=== PATIENT | female | born 1965 | race Caucasian/White ===

== ENCOUNTER → 2016-10-12 | Outpatient (CLI) | payer OTHER | END | disposition home or self-care (01) | LOC: C.LAB 09:15 | PROVIDERS: ATTEND Family Medicine | DX: A09 Infectious gastroenteritis and colitis, unspecified (principal) ==

== ENCOUNTER 2016-11-22 02:45 | Emergency (ER) | payer OTHER ==
[~2016-11-22] VITALS: Ht 162.6 cm; Wt 50.3 kg
[2016-11-22 02:51] VITALS: TEMP 36.7; Ht 162.6 cm; Wt 50.3 kg
[2016-11-22] MEDS ORDERED: DICYCLOMINE HCL 10 MG/ML 2 ML AMP IM ONE (03:45)
[2016-11-22] MEDS ORDERED: SODIUM CHLORIDE 0.9% 1000ML 1,000 ML IV STA (03:45)
[2016-11-22 04:12] LABS: BASO % 0.5 %; BASO ABS # 0.04 K/uL (0-0.2); COMPLETE YES; EOS % 2.8 %; HEMATOCRIT 41.3 % (37-47); IG% 0.1 %; LYMPH % 21.1 %; MEAN CELL VOLUME 90.6 fL (80-100); MEAN CORPUSCULAR HEMOGLOBIN 30.3 pg (25-34); MEAN CORPUSCULAR HGB CONC 33.4 g/dl (32-36); MEAN PLATELET VOLUME 9.9 fL (7.4-10.4); MONO % 11.7 %; NEUT % 63.8 %; PLATELET COUNT 300 K/uL (130-400); RED BLOOD COUNT 4.56 M/uL (4.2-5.4); WHITE BLOOD COUNT 8.52 K/uL (4.8-10.8)
[2016-11-22] MEDS ORDERED: ASPI81TA28 PO (04:16)
[2016-11-22] MEDS ORDERED: PANT40TA PO (04:16)
[2016-11-22 04:31] LABS: ALT/SGPT 28 U/L (12-78); AST/SGOT 21 U/L (15-37); BLOOD UREA NITROGEN 5 mg/dl (7-18); BUN/CREATININE RATIO 9.6 (10-20); CALCIUM 8.8 mg/dl (8.5-10.1); CARBON DIOXIDE 25 mmol/L (21-32); CHLORIDE 108 mmol/L (98-107); CREATININE 0.55 mg/dl (0.60-1.20); GLUCOSE 89 mg/dl (70-99); POTASSIUM 3.8 mmol/L (3.5-5.1); SODIUM 141 mmol/L (136-145)
[2016-11-22 04:34] LABS: ALKALINE PHOSPHATASE 70 U/L (45-117)
--- NOTE | 2016-11-22 05:02 | EMERGENCY ROOM VISIT NOTE ---
History First contact with patient: 02:50 Chief Complaint: GI ASSESSMENT Stated Complaint: GI SYMPTOMS, WEAKNESS Nursing Triage Summary: Pt had an abnormal finding on abdominal CT last week or earlier this week, and is scheduled for a colonoscopy today. Doing bowel prep last night, and had severe diarrhea starting 2030 last night. Emesis x1 at 0100. Developed generalized weakness after the vomiting/diarrhea. RUQ abdominal tenderness. History of Present Illness The patient is a 51 year old female who presents to the Emergency Room with complaints of abdominal cramping after taking bowel prep for her colonoscopy today. Patient states she has a scheduled colonoscopy today for abnormal findings on a CT scan from earlier this month. Patient states she started getting cramping and bloating and got sweaty and threw up a few times but now feels better. She's been moving her bowels. Patient denies any black or blood in her vomit or stool. Pain currently 3 out of 10 to the upper abdomen. Nothing makes it better or worse. It does not radiate. Pain described as cramping. Patient denies chest pain, dyspnea, fever, chills, cough, congestion , back pain, urinary symptoms. Review of Systems See HPI for pertinent positives & negatives. A total of 10 systems reviewed and were otherwise negative. Past Medical/Surgical History GERD , cholecystectomy Social History Smoking Status: Current Every Day Smoker Smokeless Tobacco Use: No Alcohol Use: none Drug Use: none Marital Status: Housing Status: lives with family Current/Historical Medications Scheduled Aspirin (Aspirin Ec), 81 MG PO DAILY Pantoprazole (Protonix), 40 MG PO DAILY Physical Exam Vital Signs Date Time Temp Pulse Resp B/P (MAP) Pulse Ox O2 Delivery O2 Flow Rate FiO2 11/22/16 04:07 Room Air 11/22/16 04:00 71 22 107/71 97 Room Air 11/22/16 03:00 73 11/22/16 02:51 36.7 69 19 120/73 97 Room Air Physical Exam VITALS: Vitals are noted on the nurse's note and reviewed by myself. Vital signs stable. GENERAL: Pleasant female smiling and interactive, in no acute distress, nondiaphoretic, well-developed well-nourished. SKIN: The skin was without rashes, erythema, edema, or bruising. There is no tenting of the skin. Capillary reflex less than 2 seconds. HEAD: Normocephalic atraumatic. EARS: External auditory canals clear, tympanic membranes pearly marks without erythema or effusion bilaterally. EYES: Pupils equal round and reactive to light and accommodation. Conjunctivae without injection, sclerae without icterus. Extraocular movements intact. NOSE: Patent, turbinates without inflammation or discharge. MOUTH: Mucous membranes mildly dry. Pharynx without erythema or exudate. Uvula midline. Airway patent. Tongue does not deviate. NECK: Supple without nuchal rigidity. No lymphadenopathy. No thyromegaly. Cervical spine is nontender. No JVD. HEART: Regular rate and rhythm without murmurs gallops or rubs. LUNGS: Clear to auscultation bilaterally without wheezes, rales or rhonchi. No dullness to percussion. No retractions or accessory muscle use. ABDOMEN: Positive bowel sounds x 4. Normal tympanic percussion. Soft, nontender, without masses or organomegaly. Wolff sign negative. No guarding or rebound tenderness. No CVA tenderness MUSCULOSKELETAL: No muscle atrophy, erythema, or edema noted. NEURO: Patient was alert and oriented to person place and time. Normal sensation to light and sharp touch. No focal neurological deficits. Medical Decision & Procedures Laboratory Results 11/22/16 04:00 Red Blood Count 4.56, Mean Corpuscular Volume 90.6, Mean Corpuscular Hemoglobin 30.3, Mean Corpuscular Hemoglobin Concent 33.4, Mean Platelet Volume 9.9, Neutrophils (%) (Auto) 63.8, Lymphocytes (%) (Auto) 21.1, Monocytes (%) (Auto) 11.7, Eosinophils (%) (Auto) 2.8, Basophils (%) (Auto) 0.5, Neutrophils # (Auto ) 5.43, Lymphocytes # (Auto) 1.80, Monocytes # (Auto) 1.00, Eosinophils # (Auto ) 0.24, Basophils # (Auto) 0.04 11/22/16 04:00 Test 11/22/16 04:00 White Blood Count 8.52 K/uL (4.8-10.8) Red Blood Count 4.56 M/uL (4.2-5.4) Hemoglobin 13.8 g/dL (12.0-16.0) Hematocrit 41.3 % (37-47) Mean Corpuscular Volume 90.6 fL (80-100) Mean Corpuscular Hemoglobin 30.3 pg (25-34) Mean Corpuscular Hemoglobin Concent 33.4 g/dl (32-36) Platelet Count 300 K/uL (130-400) Mean Platelet Volume 9.9 fL (7.4-10.4) Neutrophils (%) (Auto) 63.8 % Lymphocytes (%) (Auto) 21.1 % Monocytes (%) (Auto) 11.7 % Eosinophils (%) (Auto) 2.8 % Basophils (%) (Auto) 0.5 % Neutrophils # (Auto) 5.43 K/uL (1.4-6.5) Lymphocytes # (Auto) 1.80 K/uL (1.2-3.4) Monocytes # (Auto) 1.00 K/uL (0.11-0.59) Eosinophils # (Auto) 0.24 K/uL (0-0.5) Basophils # (Auto) 0.04 K/uL (0-0.2) RDW Standard Deviation 46.7 fL (36.4-46.3) RDW Coefficient of Variation 14.1 % (11.5-14.5) Immature Granulocyte % (Auto) 0.1 % Immature Granulocyte # (Auto) 0.01 K/uL (0.00-0.02) Anion Gap 8.0 mmol/L (3-11) Est Creatinine Clear Calc Drug Dose 95.0 ml/min Estimated GFR () 125.0 Estimated GFR (Non- 107.8 BUN/Creatinine Ratio 9.6 (10-20) Calcium Level 8.8 mg/dl (8.5-10.1) Total Bilirubin 0.5 mg/dl (0.2-1) Direct Bilirubin < 0.1 mg/dl (0-0.2) Aspartate Amino Transf (AST/SGOT) 21 U/L (15-37) Alanine Aminotransferase (ALT/SGPT) 28 U/L (12-78) Alkaline Phosphatase 70 U/L (45-117) Total Protein 6.9 gm/dl (6.4-8.2) Albumin 3.8 gm/dl (3.4-5.0) Lipase 217 U/L (73-393) Medications Administered Medications (Trade) Dose Ordered Sig/Davis Route Start Time Stop Time Status Last Admin Dose Admin Dicyclomine HCl (Bentyl Inj) 20 mg NOW ONCE IM 11/22/16 03:45 11/22/16 03:47 DC 11/22/16 04:03 20 MG Sodium Chloride 1,000 ml @ 999 mls/hr Q1H1M STAT IV 11/22/16 03:45 11/22/16 04:45 DC 11/22/16 04:03 999 MLS/HR ED Course Prior records/ancillary studies reviewed. Triage Nursing notes reviewed. Additional history obtained from The patient's history was concerning for abdominal cramping after taking bowel prep for colonoscopy. Differential diagnosis: Etiologies such as side effect to bowel prep, appendicitis, diverticulitis, PUD , biliary pathology, UTI, pancreatitis, obstruction, mesenteric ischemia, aortic pathology, infections, inflammatory bowel disease, renal colic, as well as others were entertained. Physical examination findings: As above. ER treatment provided: IV fluids, Bentyl On reassessment the patient felt better. Diagnostics interpreted by me: The labs revealed no leukocytosis. No worrisome electrolyte abnormality Imaging studies: Acute abdominal series no free air, obstruction or pneumothorax per my interpretation Exam and history seem consistent with abdominal cramping most likely from the bowel prep. Patient was advised to continue her prep for her colonoscopy today. She did not have acute abdomen on exam. She is well-appearing. She is tolerating fluids. She is advised to follow-up family care in a few days or here in the ER sooner for abdominal pain, fevers, vomiting, worsening signs or symptoms or as needed.By the evaluation outlined above emergent etiologies such as appendicitis, diverticulitis, PUD, biliary pathology, UTI, pancreatitis, obstruction, mesenteric ischemia, aortic pathology, infections, inflammatory bowel disease, renal colic, as well as others were deemed relatively unlikely. The pt informed about the findings as listed above. All questions were answered and pleased with the treatment. Return instructions were outlined and the patient was discharged in stable condition. Outpatient prescription management: [facility] Referral: The patient was referred back to their primary care physician for follow-up in 2 to 3 days for a recheck of the current condition. Medical Decision as above Medication Reconcilliation Current Medication List: was personally reviewed by me Blood Pressure Screening Patient's blood pressure: Normal blood pressure Impression Primary Impression: Abdominal cramping Departure Information Dispostion Home / Self-Care Condition GOOD Referrals Jose Daniel Retana M.D. (PCP) Patient Instructions My [facility] Additional Instructions Continue your bowel prep regimen. Zofran 4 m tablet every 6 hours as needed for nausea or vomiting. Keep your appointment as scheduled for a colonoscopy today. Follow up with family care in 2-3 days. Return to ER sooner for abdominal pain, fevers, vomiting, black or bloody stool , worsening signs or symptoms or as needed.
[2016-11-22 05:12] VITALS: BP 117/71; PULSE 74; O2SAT 99
[2016-11-22] MEDS ORDERED: ONDANSETRON HOME PACK 4MG OD TAB PO ONE (05:15)
--- NOTE | 2016-11-22 07:23 | DIAGNOSTIC IMAGING REPORT ---
PA CHEST RADIOGRAPH AND UPRIGHT AND SUPINE AP RADIOGRAPHS OF THE ABDOMEN CLINICAL HISTORY: Abdominal pain. COMPARISON STUDY: No previous studies for comparison. FINDINGS: Lung volumes are normal. No consolidation is identified. Pulmonary vascularity is normal. Cardiomediastinal silhouette is normal. There is no free air. The bowel gas pattern is normal. There are cholecystectomy clips. Pelvic calcifications likely reflect phleboliths. IMPRESSION: 1. No free air or evidence of bowel obstruction. 2. No acute cardiopulmonary findings. Electronically signed by: Leon Yang M.D. 11/22/2016 7:21 AM Dictated Date/Time: 11/22/2016 7:20 AM
== END 2016-11-22 05:13 | disposition home or self-care (01) ==
LOC: C.EDB 02:45 → EDBD 02:45 → C.EDB 05:13
DX: R10.9 Unspecified abdominal pain (principal); K21.9 Gastro-esophageal reflux disease without esophagitis; Z90.49 Acquired absence of other specified parts of digestive tract; Z79.82 Long term (current) use of aspirin; F17.200 Nicotine dependence, unspecified, uncomplicated

== ENCOUNTER 2017-03-18 18:30 | Observation (INO) | payer OTHER ==
[~2017-03-18] VITALS: Ht 162.6 cm; Wt 50.3 kg
[~2017-03-18 18:30] MED LIST: ASPI81TA28 PO; PANT40TA PO
[2017-03-18] MEDS ORDERED: ASPIRIN 81 MG CHEW PO STA (18:49)
[2017-03-18] MEDS ORDERED: ALBUT/IPRATROP 3MG/0.5MG NEB 3 ML VIAL INH STA (18:49)
--- NOTE | 2017-03-18 18:58 | EMERGENCY ROOM VISIT NOTE ---
History Report prepared by Lisa: Omar Leung Under the Supervision of: Dr. Mal Dao M.D. First contact with patient: 18:37 Chief Complaint: CHEST PAIN Stated Complaint: CHEST PAIN Nursing Triage Summary: Pt states she has a monitor on. Pt c/o left chest pain at 1725, Nitro didn't burn under her tongue. Didn't help with pain. Took two baby aspirin. Diaphoretic with CP. Denies SOB. States some neck pain. Pt state patient has monitor because she gets dizzy and lightheaded. History of Present Illness The patient is a 51 year old female who presents to the Emergency Room with complaints of constant left-sided chest pain that began 1 hour and 15 minutes prior to arrival to the emergency department. The patient notes that she sat up from her chair when the pain began. She states that the pain does not radiate and is localized to the left side of her chest. The patient reports that the pain was accompanied by diaphoresis and notes that the pain is also worsened upon inhalation. The patient's reports that the patient had a cardiac catheterization one year ago but did not have a stent put in. He also notes that the patient has a 50% blockage in one artery. The patient reports that this is the first time she had experienced pain like this. She notes that she took 2 baby aspirin and 1 nitroglycerine REFERRAL SPECIALIST in the ED but did not feel that the nitroglycerine alleviated her symptoms. The patient reports that she is a current smoker and does not use any inhalers. Source of History: patient Onset: 1 hour and 15 minutes ago Position: chest (left) Quality: other (Pain ) Timing: constant Modifying Factors (Worsening): breathing Associated Symptoms: + diaphoresis Review of Systems See HPI for pertinent positives & negatives. A total of 10 systems reviewed and were otherwise negative. Past Medical & Surgical Medical Problems: (1) Kimble esophagus (2) Chest pain (3) History of heart disease (4) IBS (irritable bowel syndrome) Surgical Problems: (1) H/O cervical spine surgery (2) History of cholecystectomy (3) S/P appy (4) S/P partial hysterectomy Social History Problems: (1) Smoker Social History Smoking Status: Current Every Day Smoker Alcohol Use: none Drug Use: none Marital Status: Housing Status: lives with family Current/Historical Medications Scheduled Aspirin (Aspirin Ec), 81 MG PO DAILY Atorvastatin (Lipitor), 20 MG PO DAILY Linaclotide (Linzess), 1 CAP PO DAILY Nitroglycerin (Nitrostat), 0.4 MG UT PRN Pantoprazole (Protonix), 40 MG PO DAILY Probiotic Product (Probiotic), 1 CAP PO DAILY Allergies Coded Allergies: Meperidine (Unverified Adverse Reaction, Intermediate, NAUSEA, 03/18/17) Physical Exam Vital Signs Date Time Temp Pulse Resp B/P (MAP) Pulse Ox O2 Delivery O2 Flow Rate FiO2 03/18/17 19:44 95 18 126/73 94 Room Air 03/18/17 19:11 90 18 123/88 99 03/18/17 19:11 85 03/18/17 19:10 95 Room Air 03/18/17 19:10 Room Air 03/18/17 19:02 86 18 130/81 95 Room Air 03/18/17 18:36 97 Room Air 03/18/17 18:32 36.8 112 20 161/90 97 Room Air Physical Exam GENERAL: Patient is a healthy-appearing well-nourished female. HEAD: Normocephalic atraumatic EYES: Ocular movements intact pupils equal and react to light OROPHARYNX mucous membranes are moist no exudates present no erythema or edema present NECK: Supple no nuchal rigidity CHEST: Good equal expansion. Point tender to the 6th rib on the right. LUNGS: Bilateral wheezing. CARDIAC: Normal S1 and S2 ABDOMEN: Soft nontender no guarding BACK: No CVA tenderness EXTREMITIES: No pain upon palpation normal muscle strength in all groups no clubbing cyanosis or edema NEURO: Patient is following commands and answering questions appropriately. Alert and oriented x3 Cranial Nerves 2-12 grossly intact Medical Decision & Procedures ER Provider Diagnostic Interpretation: Radiology results as stated below per my review and radiologist interpretation: (CHEST FOR PE) ANGIO WITH CT DOSE: 172.90 mGy.cm HISTORY: Chest pain dyspnea TECHNIQUE: Multiaxial CT images of the chest were performed following the intravenous administration of contrast to evaluate the pulmonary arteries. Maximal intensity projection images were also obtained. A dose lowering technique was utilized adhering to the principles of ALARA. COMPARISON STUDY: None. FINDINGS: There is a normal caliber thoracic aorta with no evidence for dissection. There is no evidence for pulmonary embolus. No pleural effusions. No pneumothorax. The liver and spleen are unremarkable. No mediastinal or hilar lymphadenopathy. The central airways are patent. The lungs are clear. IMPRESSION: No evidence for pulmonary embolus. The lungs are clear. The above report was generated using voice recognition software. It may contain grammatical, syntax or spelling errors. Electronically signed by: Merritt Contreras M.D. 03/18/2017 7:41 PM Dictated Date/Time: 03/18/2017 7:40 PM Laboratory Results 03/18/17 18:45 Red Blood Count 4.52, Mean Corpuscular Volume 91.8, Mean Corpuscular Hemoglobin 31.0, Mean Corpuscular Hemoglobin Concent 33.7, Mean Platelet Volume 10.2, Neutrophils (%) (Auto) 59.8, Lymphocytes (%) (Auto) 28.9, Monocytes (%) (Auto) 8.4, Eosinophils (%) (Auto) 2.2, Basophils (%) (Auto) 0.5, Neutrophils # (Auto) 5.12, Lymphocytes # (Auto) 2.48, Monocytes # (Auto) 0.72, Eosinophils # (Auto) 0.19, Basophils # (Auto) 0.04 03/18/17 18:45 Test 03/18/17 18:45 White Blood Count 8.57 K/uL (4.8-10.8) Red Blood Count 4.52 M/uL (4.2-5.4) Hemoglobin 14.0 g/dL (12.0-16.0) Hematocrit 41.5 % (37-47) Mean Corpuscular Volume 91.8 fL (80-100) Mean Corpuscular Hemoglobin 31.0 pg (25-34) Mean Corpuscular Hemoglobin Concent 33.7 g/dl (32-36) Platelet Count 295 K/uL (130-400) Mean Platelet Volume 10.2 fL (7.4-10.4) Neutrophils (%) (Auto) 59.8 % Lymphocytes (%) (Auto) 28.9 % Monocytes (%) (Auto) 8.4 % Eosinophils (%) (Auto) 2.2 % Basophils (%) (Auto) 0.5 % Neutrophils # (Auto) 5.12 K/uL (1.4-6.5) Lymphocytes # (Auto) 2.48 K/uL (1.2-3.4) Monocytes # (Auto) 0.72 K/uL (0.11-0.59) Eosinophils # (Auto) 0.19 K/uL (0-0.5) Basophils # (Auto) 0.04 K/uL (0-0.2) RDW Standard Deviation 47.2 fL (36.4-46.3) RDW Coefficient of Variation 14.1 % (11.5-14.5) Immature Granulocyte % (Auto) 0.2 % Immature Granulocyte # (Auto) 0.02 K/uL (0.00-0.02) Prothrombin Time 10.0 SECONDS (9.0-12.0) Prothromb Time International Ratio 1.0 (0.9-1.1) Anion Gap 9.0 mmol/L (3-11) Est Creatinine Clear Calc Drug Dose 65.8 ml/min Estimated GFR () 99.8 Estimated GFR (Non- 86.1 BUN/Creatinine Ratio 9.3 (10-20) Calcium Level 9.1 mg/dl (8.5-10.1) Total Bilirubin 0.3 mg/dl (0.2-1) Direct Bilirubin < 0.1 mg/dl (0-0.2) Aspartate Amino Transf (AST/SGOT) 14 U/L (15-37) Alanine Aminotransferase (ALT/SGPT) 20 U/L (12-78) Alkaline Phosphatase 59 U/L (45-117) Total Creatine Kinase 41 U/L (26-192) Creatine Kinase MB < 0.5 ng/ml (0.5-3.6) Creatine Kinase MB Ratio (0-3.0) Total Protein 7.5 gm/dl (6.4-8.2) Albumin 4.0 gm/dl (3.4-5.0) Lipase 213 U/L (73-393) Labs reviewed by ED physician. Medications Administered Medications (Trade) Dose Ordered Sig/Davis Route Start Time Stop Time Status Last Admin Dose Admin Albuterol/ Ipratropium (Duoneb) 3 ml NOW STAT INH 03/18/17 18:49 03/18/17 18:53 DC 03/18/17 19:04 3 ML Aspirin (Aspirin Chew) 324 mg NOW STAT PO 03/18/17 18:49 03/18/17 18:53 DC 03/18/17 19:03 324 MG Nitroglycerin (Nitrostat Tab) 0.4 mg Q5M PRN SL 03/18/17 19:00 03/18/17 21:31 DC 03/18/17 19:07 0.4 MG ECG Indication: chest pain Rate (beats per minute): 96 Rhythm: normal sinus Findings: no acute ischemic change, no ectopy, other (Normal Sinus Rhythym, normal axis, rate 96, no st elevations or depressions. ) Change: Repeat EKG: Normal sinus rhythm, rate 89, no ischemia, no ectopy, normal axis, no st elevations or depression. Repeat EKG shows no change from previous EKG. Patient's electrocardiogram per my interpretation. ED Course 1837: Past medical records reviewed. The patient was evaluated in room A11A. A complete history and physical examination was performed. 1848: Ordered aspirin 324 mg PO, and Albuterol/Ipratropium 3ml INH 1899: Ordered nitroglycerine 0.4mg SL 1922: Ordered Ativan 0.5 mg IV. 2029: I discussed the patient's case with Dr. Watson Baekr. She will evaluate the patient for further treatment and care. Medical Decision Differential diagnosis: Etiologies such as cardiac ischemia, aortic dissection, pulmonary embolism, pneumonia, pneumothorax, musculoskeletal, infections, pericarditis, myocarditis , esophageal rupture, gastrointestinal, as well as others were entertained. This is a 51-year-old female who presents emergency department complaining of chest pain. The patient was given nitro paste in the emergency department with complete resolution of her pain. She was also given aspirin. The patient is wheezing throughout all lung evans was also given a DuoNeb breathing treatment. Based on the fact that the patient's pain was relieved by nitroglycerin I did discuss the case with the hospitalist service who agreed to admit the patient for observation. Patient and were in agreement with the treatment plan. Medication Reconcilliation Current Medication List: was personally reviewed by me Blood Pressure Screening Patient's blood pressure: Normal blood pressure Consults Time Called: 2024 Consulting Physician: Dr. Watson Baker Returned Call: 2029 I discussed the patient's case with Dr. Watson Baker. She will evaluate the patient for further treatment. Impression Primary Impression: Precordial chest pain Scribe Attestation The scribe's documentation has been prepared under my direction and personally reviewed by me in its entirety. I confirm that the note above accurately reflects all work, treatment, procedures, and medical decision making performed by me. Departure Information Dispostion Being Evaluated By Hospitalist Referrals Vijay Jolley MD (PCP) Patient Instructions My [facility]
[2017-03-18] MEDS ORDERED: NITROGLYCERIN 0.4 MG SL PER TAB CHARGE SL PRN ×2 (19:00→21:30)
[2017-03-18 19:01] LABS: BASO % 0.5 %; BASO ABS # 0.04 K/uL (0-0.2); EOS % 2.2 %; EOS ABS # 0.19 K/uL (0-0.5); HEMATOCRIT 41.5 % (37-47); IG# 0.02 K/uL (0.00-0.02); LYMPH % 28.9 %; LYMPH ABS # 2.48 K/uL (1.2-3.4); MEAN CELL VOLUME 91.8 fL (80-100); MEAN CORPUSCULAR HGB CONC 33.7 g/dl (32-36); MEAN PLATELET VOLUME 10.2 fL (7.4-10.4); MONO % 8.4 %; MONO ABS # 0.72 K/uL (0.11-0.59); NEUT % 59.8 %; NEUT ABS # 5.12 K/uL (1.4-6.5); PLATELET COUNT 295 K/uL (130-400); RED CELL DISTRIBUTION WIDTH CV 14.1 % (11.5-14.5); RED CELL DISTRIBUTION WIDTH SD 47.2 fL (36.4-46.3); WHITE BLOOD COUNT 8.57 K/uL (4.8-10.8)
[2017-03-18] MEDS ORDERED: OPTIRAY 320 IV PRN (19:15)
[2017-03-18 19:22] LABS: ALT/SGPT 20 U/L (12-78); BLOOD UREA NITROGEN 7 mg/dl (7-18); CALCIUM 9.1 mg/dl (8.5-10.1); CARBON DIOXIDE 28 mmol/L (21-32); CREATININE 0.79 mg/dl (0.60-1.20); GLUCOSE 119 mg/dl (70-99); LIPASE 213 U/L (73-393); POTASSIUM 3.5 mmol/L (3.5-5.1); SODIUM 142 mmol/L (136-145)
[2017-03-18] MEDS ORDERED: LORAZEPAM 2 MG/ML 1 ML VIAL IV STA (19:23)
[2017-03-18 19:26] LABS: ALKALINE PHOSPHATASE 59 U/L (45-117); AST/SGOT 14 U/L (15-37); CKMB < 0.5 ng/ml (0.5-3.6); TOTAL PROTEIN 7.5 gm/dl (6.4-8.2)
--- NOTE | 2017-03-18 19:42 | DIAGNOSTIC IMAGING REPORT ---
(CHEST FOR PE) ANGIO WITH CT DOSE: 172.90 mGy.cm HISTORY: Chest pain dyspnea TECHNIQUE: Multiaxial CT images of the chest were performed following the intravenous administration of contrast to evaluate the pulmonary arteries. Maximal intensity projection images were also obtained. A dose lowering technique was utilized adhering to the principles of ALARA. COMPARISON STUDY: None. FINDINGS: There is a normal caliber thoracic aorta with no evidence for dissection. There is no evidence for pulmonary embolus. No pleural effusions. No pneumothorax. The liver and spleen are unremarkable. No mediastinal or hilar lymphadenopathy. The central airways are patent. The lungs are clear. IMPRESSION: No evidence for pulmonary embolus. The lungs are clear. The above report was generated using voice recognition software. It may contain grammatical, syntax or spelling errors. Electronically signed by: Merritt Contreras M.D. 03/18/2017 7:41 PM Dictated Date/Time: 03/18/2017 7:40 PM
[2017-03-18] MEDS ORDERED: LINA1CAP PO (20:01)
[2017-03-18] MEDS ORDERED: MISCCAP80 PO (20:01)
[2017-03-18] MEDS ORDERED: NTRGSL/4 UT (20:01)
[2017-03-18] MEDS ORDERED: IV FLUIDS COMPLETED PRN (20:45)
[2017-03-18 21:24] VITALS: BP 129/79; PULSE 81; TEMP 36.8; O2SAT 98
[2017-03-18] MEDS ORDERED: LPT20 PO (21:26)
[2017-03-18] MEDS ORDERED: ACETAMINOPHEN 325 MG TAB PO PRN (21:30)
[2017-03-18] MEDS ORDERED: POLYETHYLENE (MIRALAX) 17 GM PACK PO PRN (21:30)
[2017-03-18] MEDS ORDERED: MoRPHine SULFATE 2 MG/ML CARP IV PRN (21:30)
[2017-03-18] MEDS ORDERED: ONDANSETRON INJ 2 MG/ML 2 ML VIAL IV PRN (21:30)
--- NOTE | 2017-03-18 21:38 | History and Physical ---
History & Physical Date & Time of Service: Mar 18, 2017 at 21:27 Chief Complaint: Chest Pain Primary Care Physician: Vijay Jolley MD History of Present Illness Source: patient, spouse, clinic records, hospital records 51 yo F with h/o nonobstructive CAD presents to the ER with chest pain that began at rest after eating flavored chips and persisted. In the ER, her pain was relieved with nitro and had persisted for a couple of hours. She reports the pain in her L anterior chest without radiation and was accompanied by sweaty underarms. She denies any SOB or pain with inhalation but did have a CTA which was negative for PE. She reports taking her own nitro at home but states she thinks it didn't work because it is . ASA was given. She was recently seen by Dr. Melvin for persistent syncopal episodes and is currently on a Ziopatch. She denies any recent syncope. She also states that she is a smoker and has "debris" in her lung for which she is seeing a piper helper. She reports no SOB but has had a productive cough of brownish sputum and has some wheezing on exam. She is not in respiratory distress and is not requiring oxygen supplementation. She is currently chest pain-free after the nitro in the ER. Risk factors include HLP, active smoking and strong family history of early CAD including her mom with UT @63 yo, brother with UT @ 40 yo and sister with UT @ 50 yo. Past Medical/Surgical History Medical Problems: (1) Kimble esophagus Status: Chronic (2) History of heart disease Status: Chronic (3) IBS (irritable bowel syndrome) Status: Chronic Surgical Problems: (1) H/O cervical spine surgery Status: Chronic (2) History of cholecystectomy Status: Chronic (3) S/P appy Status: Chronic (4) S/P partial hysterectomy Permanent Comment: 2007 Status: Chronic Social History Problems: (1) Smoker Status: Chronic Family History FH: heart attack MOTHER (63, ) BROTHER (40, ) SISTER (53) Social History Smoking Status: Current Every Day Smoker Smokeless Tobacco Use: No Alcohol Use: none Marital Status: Housing status: lives with significant other Immunizations History of Influenza Vaccine: Yes Influenza Vaccine Date: Nov 09, 2016 History of Tetanus Vaccine?: Yes Tetanus Immunization Date: Jan 23, 2017 History of Pneumococcal: Yes Pneumococcal Date: Nov 09, 2016 History of Hepatitis B Vaccine: Unknown Multi-Drug Resistant Organisms History of MDRO: No Allergies Coded Allergies: Meperidine (Unverified Adverse Reaction, Intermediate, NAUSEA, 03/18/17) Home Medications Scheduled Aspirin (Aspirin Ec), 81 MG PO DAILY Atorvastatin (Lipitor), 20 MG PO DAILY Linaclotide (Linzess), 1 CAP PO DAILY Nitroglycerin (Nitrostat), 0.4 MG UT PRN Pantoprazole (Protonix), 40 MG PO DAILY Probiotic Product (Probiotic), 1 CAP PO DAILY Review of Systems At least ten systems were reviewed and negative except as indicated in HPI. Physical Exam Vital Signs Date Time Temp Pulse Resp B/P (MAP) Pulse Ox O2 Delivery O2 Flow Rate FiO2 03/18/17 21:01 36.8 79 18 128/86 95 03/18/17 19:44 95 18 126/73 94 Room Air 03/18/17 19:11 90 18 123/88 99 03/18/17 19:11 85 03/18/17 19:10 95 Room Air 03/18/17 19:10 Room Air 03/18/17 19:02 86 18 130/81 95 Room Air 03/18/17 18:36 97 Room Air 03/18/17 18:32 36.8 112 20 161/90 97 Room Air General Appearance: WD/WN, no apparent distress Head: normocephalic, atraumatic Eyes: normal inspection, PERRL ENT: hearing grossly normal, pharynx normal Neck: supple, no adenopathy, trachea midline Respiratory/Chest: chest non-tender, normal breath sounds, no respiratory distress, no accessory muscle use, + wheezing Cardiovascular: regular rate, rhythm, no edema, no gallop, no JVD, no murmur, normal peripheral pulses Abdomen/GI: normal bowel sounds, non tender, soft, no organomegaly Back: normal inspection Extremities/Musculoskelatal: normal inspection 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, no motor/sensory deficits, alert, normal mood/affect, oriented x 3 Skin: normal color, warm/dry, + pertinent finding (tattoes and mild eczematous patches.) Diagnostics Laboratory Results 03/18/17 18:45 Red Blood Count 4.52, Mean Corpuscular Volume 91.8, Mean Corpuscular Hemoglobin 31.0, Mean Corpuscular Hemoglobin Concent 33.7, Mean Platelet Volume 10.2, Neutrophils (%) (Auto) 59.8, Lymphocytes (%) (Auto) 28.9, Monocytes (%) (Auto) 8.4, Eosinophils (%) (Auto) 2.2, Basophils (%) (Auto) 0.5, Neutrophils # (Auto) 5.12, Lymphocytes # (Auto) 2.48, Monocytes # (Auto) 0.72, Eosinophils # (Auto) 0.19, Basophils # (Auto) 0.04 03/18/17 18:45 Test 03/18/17 18:45 White Blood Count 8.57 K/uL (4.8-10.8) Red Blood Count 4.52 M/uL (4.2-5.4) Hemoglobin 14.0 g/dL (12.0-16.0) Hematocrit 41.5 % (37-47) Mean Corpuscular Volume 91.8 fL (80-100) Mean Corpuscular Hemoglobin 31.0 pg (25-34) Mean Corpuscular Hemoglobin Concent 33.7 g/dl (32-36) Platelet Count 295 K/uL (130-400) Mean Platelet Volume 10.2 fL (7.4-10.4) Neutrophils (%) (Auto) 59.8 % Lymphocytes (%) (Auto) 28.9 % Monocytes (%) (Auto) 8.4 % Eosinophils (%) (Auto) 2.2 % Basophils (%) (Auto) 0.5 % Neutrophils # (Auto) 5.12 K/uL (1.4-6.5) Lymphocytes # (Auto) 2.48 K/uL (1.2-3.4) Monocytes # (Auto) 0.72 K/uL (0.11-0.59) Eosinophils # (Auto) 0.19 K/uL (0-0.5) Basophils # (Auto) 0.04 K/uL (0-0.2) RDW Standard Deviation 47.2 fL (36.4-46.3) RDW Coefficient of Variation 14.1 % (11.5-14.5) Immature Granulocyte % (Auto) 0.2 % Immature Granulocyte # (Auto) 0.02 K/uL (0.00-0.02) Anion Gap 9.0 mmol/L (3-11) Est Creatinine Clear Calc Drug Dose 65.8 ml/min Estimated GFR () 99.8 Estimated GFR (Non- 86.1 BUN/Creatinine Ratio 9.3 (10-20) Calcium Level 9.1 mg/dl (8.5-10.1) Total Bilirubin 0.3 mg/dl (0.2-1) Direct Bilirubin < 0.1 mg/dl (0-0.2) Aspartate Amino Transf (AST/SGOT) 14 U/L (15-37) Alanine Aminotransferase (ALT/SGPT) 20 U/L (12-78) Alkaline Phosphatase 59 U/L (45-117) Total Creatine Kinase 41 U/L (26-192) Creatine Kinase MB < 0.5 ng/ml (0.5-3.6) Creatine Kinase MB Ratio (0-3.0) Troponin I < 0.015 ng/ml (0-0.045) Total Protein 7.5 gm/dl (6.4-8.2) Albumin 4.0 gm/dl (3.4-5.0) Lipase 213 U/L (73-393) Results Past 24 Hours Test 03/18/17 18:45 03/18/17 21:18 Range/Units White Blood Count 8.57 4.8-10.8 K/uL Red Blood Count 4.52 4.2-5.4 M/uL Hemoglobin 14.0 12.0-16.0 g/dL Hematocrit 41.5 37-47 % Mean Corpuscular Volume 91.8 80-100 fL Mean Corpuscular Hemoglobin 31.0 25-34 pg Mean Corpuscular Hemoglobin Concent 33.7 32-36 g/dl Platelet Count 295 130-400 K/uL Mean Platelet Volume 10.2 7.4-10.4 fL Neutrophils (%) (Auto) 59.8 % Lymphocytes (%) (Auto) 28.9 % Monocytes (%) (Auto) 8.4 % Eosinophils (%) (Auto) 2.2 % Basophils (%) (Auto) 0.5 % Neutrophils # (Auto) 5.12 1.4-6.5 K/uL Lymphocytes # (Auto) 2.48 1.2-3.4 K/uL Monocytes # (Auto) 0.72 0.11-0.59 K/uL Eosinophils # (Auto) 0.19 0-0.5 K/uL Basophils # (Auto) 0.04 0-0.2 K/uL RDW Standard Deviation 47.2 36.4-46.3 fL RDW Coefficient of Variation 14.1 11.5-14.5 % Immature Granulocyte % (Auto) 0.2 % Immature Granulocyte # (Auto) 0.02 0.00-0.02 K/uL Sodium Level 142 136-145 mmol/L Potassium Level 3.5 3.5-5.1 mmol/L Chloride Level 105 98-107 mmol/L Carbon Dioxide Level 28 21-32 mmol/L Anion Gap 9.0 3-11 mmol/L Blood Urea Nitrogen 7 7-18 mg/dl Creatinine 0.79 0.60-1.20 mg/dl Est Creatinine Clear Calc Drug Dose 65.8 ml/min Estimated GFR () 99.8 Estimated GFR (Non- 86.1 BUN/Creatinine Ratio 9.3 10-20 Random Glucose 119 70-99 mg/dl Calcium Level 9.1 8.5-10.1 mg/dl Total Bilirubin 0.3 0.2-1 mg/dl Direct Bilirubin < 0.1 0-0.2 mg/dl Aspartate Amino Transf (AST/SGOT) 14 15-37 U/L Alanine Aminotransferase (ALT/SGPT) 20 12-78 U/L Alkaline Phosphatase 59 45-117 U/L Total Creatine Kinase 41 26-192 U/L Creatine Kinase MB < 0.5 0.5-3.6 ng/ml Creatine Kinase MB Ratio 0-3.0 Troponin I < 0.015 0-0.045 ng/ml Total Protein 7.5 6.4-8.2 gm/dl Albumin 4.0 3.4-5.0 gm/dl Lipase 213 73-393 U/L Diagnostic Radiology (CHEST FOR PE) ANGIO WITH CT DOSE: 172.90 mGy.cm HISTORY: Chest pain dyspnea TECHNIQUE: Multiaxial CT images of the chest were performed following the intravenous administration of contrast to evaluate the pulmonary arteries. Maximal intensity projection images were also obtained. A dose lowering technique was utilized adhering to the principles of ALARA. COMPARISON STUDY: None. FINDINGS: There is a normal caliber thoracic aorta with no evidence for dissection. There is no evidence for pulmonary embolus. No pleural effusions. No pneumothorax. The liver and spleen are unremarkable. No mediastinal or hilar lymphadenopathy. The central airways are patent. The lungs are clear. IMPRESSION: No evidence for pulmonary embolus. The lungs are clear Normal EKG Impression Assessment and Plan 51 yo with nonobstructive CAD and multiple risk factors for CAD including active tobacco use, HLP and a significant family history presents with several hours of chest pain at rest. 1. Chest pain-rule out ACS overnight. Currently chest pain-free with nitro in the ER, Received ASA and is on statin. Trend trop overnight and Cards consult in am to determine the need for possible stress test. 2. Smoking-encouraged to quit, explained options available to her. She is considering lozenges that we don't have available here. 3. Wheezing-does not have a COPD exacerbation but will give some scheduled duonebs. She has had a cough that is productive but minor. Will flu pcr her and order sputum culture as well. No steroids at this time without any work of breathing. DVT proph-Lovenox Full Code Dispo-tele observation overnight. Leyda Chaudhari DO [facility]ist Level of Care Telemetry Resuscitation Status FULL RESUSCITATION VTE Prophylaxis VTE Risk Assessment Done? Y/N: Yes Risk Level: Moderate Given or contraindicated: Enoxaparin (Lovenox)SQ
[2017-03-18 22:18] VITALS: BP 129/79; PULSE 81; TEMP 36.8; O2SAT 98; Ht 162.6 cm; Wt 50.3 kg
[2017-03-18 23:08] LABS: INFLUENZA A PCR Neg for Influ A (NEG); INFLUENZA B PCR Neg for Influ B (NEG)
[2017-03-18 23:30] VITALS: O2SAT 98
[2017-03-18 23:53] VITALS: BP 126/76; PULSE 71; TEMP 36.6; O2SAT 98
[2017-03-19] MEDS ORDERED: NURSING VERBAL MED ORDER ONE ×5 (00:15→09:15)
[2017-03-19] MEDS ORDERED: ONDANSETRON INJ 2 MG/ML 2 ML VIAL IV PRN (00:45)
[2017-03-19 03:40] VITALS: BP 122/76; PULSE 66; TEMP 36.6; O2SAT 97
[2017-03-19 04:45] VITALS: O2SAT 97
[2017-03-19 07:39] VITALS: BP 107/69; PULSE 69; TEMP 36.5; O2SAT 98
[2017-03-19 07:42] VITALS: PULSE 67; O2SAT 97
[2017-03-19] MEDS ORDERED: ALBUT/IPRATROP 3MG/0.5MG NEB 3 ML VIAL INH SCH (08:00)
[2017-03-19] MEDS ORDERED: ASPIRIN 81 MG ECTAB PO SCH (09:00)
[2017-03-19] MEDS ORDERED: ATORVASTATIN 20 MG TAB PO SCH ×2 (09:00→21:00)
[2017-03-19] MEDS ORDERED: ENOXAPARIN 40 MG/0.4 ML SYR SC SCH (09:00)
[2017-03-19] MEDS ORDERED: PANTOprazole SOD 40 MG TAB PO SCH (09:00)
[2017-03-19] MEDS: LINZESS~ORDER AWAITING ACTION SCH ×2 (09:01)
--- NOTE | 2017-03-19 10:33 | Cardiology Consultation ---
Cardiology Consultation Date of Service Mar 19, 2017. (Mali Flores, FREDERICK) Cardiology Consultation Requesting Physician: Dr. Chaudhari Attending Print Shop Stenographer: Dr. Ruiz HPI: Patient is a 51-year-old female who is known to Dr. Melvin, recently evaluated as a new patient for first time, who carries a PMH significant for hyperlipidemia, family history of premature coronary artery disease, chronic tobacco abuse with underlying COPD. Patient was previously evaluated at [facility] for ongoing chest pain with nuclear stress testing which was negative for inducible ischemia. Due to risk factors, she ultimately underwent cardiac cath on 04/05/2016 which demonstrated mild narrowing of the left circumflex 50-60 % with no other obstructive disease noted and normal LV function. She also reported at her office visit recently several presyncope/syncopal episodes over the last year. She is currently wearing a 2 week Zio monitor to be taken off tomorrow. No recent syncope or near syncope. No dizziness. Patient was in normal state of health yesterday. After eating a large dinner of lasagna and then spicy potato chips, she developed left sided chest pain, described as a sharp/stabbing pain, tender to palpation. No radiation. No associated symptoms of SOB, diaphoresis, nausea Symptoms lasted about 1 hour. She took ASA and nitro at home without relief. She came to ER and received 1 SL nitro with relief within several minutes. EKG was non ischemic. Cardiac enzymes unremarkable x3. She also notes ongoing productive cough. Follows with hotbed operator for COPD and chronic tobacco abuse. She received neb treatment in ER as well which aided in her symptoms. She reports taking Protonix 20 mg in the AM, rather than normal 40 mg. She has a history of Kimble's esophagus At time of consult, patient feeling well. Denies recurrent chest pain with ambulation in the hallways. No SOB. Chronic cough unchanged. No dizziness, syncope or near syncope. No fever or chills. No palpitations. Patient anxious for discharge as is having PET scan today with recent CA diagnosis. Review of Systems: See HPI for pertinent positives. All other 10 point review of systems is negative. Medical Problems: (1) Kimble esophagus (2) Chest pain (3) History of heart disease (4) IBS (irritable bowel syndrome) 5. Non obstructive CAD 6. Syncope, unknown etiology PAST SURGICAL HISTORY: COLONOSCOPY, DIAGNOSTIC (RECTUM) 11/22/2016 hyperplastic polyp, diverticulosis, repeat 3 yrs NECK SPINE FUSION (CERV, BELOW C2) 1998 PARTIAL HYSTERECTOMY 2008 REMOVAL OF APPENDIX 1971 REMOVE GALLBLADDER 04/2016 FAMILY HISTORY: Positive for heart disease in multiple members, including a brother who abruptly at age 40. Mother with history of heart disease. Sister with history of coronary disease. SOCIAL HISTORY: Patient resides in [place]. She previously worked as a warehouse record clerk. She is a 1/2 [id number] smoker of 35+ pack-year history of tobacco use. She uses no alcohol or significant [id number] medications. ALLERGIES: Review of patient's allergies indicates: Allergen Reactions Adhesive Tape Rash Demerol Hcl [Meperidine] Nausea/vomiting MEDICATIONS: Reported Home Medications Medications Dose Route/Sig Max Daily Dose Days Date Category Lipitor (Atorvastatin Calcium) 20 Mg Tab 20 Mg PO DAILY 03/18/17 Reported Probiotic (Probiotic Product) 1 Cap Cap 1 Cap PO DAILY 03/18/17 Reported Linzess (Linaclotide) 145 Mcg Cap 1 Cap PO DAILY 03/18/17 Reported Nitrostat (Nitroglycerin) 0.4 Mg Tab 0.4 Mg UT PRN 03/18/17 Reported Aspirin Ec (Aspirin) 81 Mg Tab 81 Mg PO DAILY 11/22/16 Reported Protonix (Pantoprazole Sodium) 40 Mg Tab 40 Mg PO DAILY 11/22/16 Reported PHYSICAL EXAMINATION: Last 8 Hrs Date Time Temp Pulse Resp B/P (MAP) Pulse Ox O2 Delivery O2 Flow Rate FiO2 03/19/17 08:00 Room Air 03/19/17 07:42 67 18 97 Room Air 03/19/17 07:39 36.5 69 18 107/69 (82) 98 Room Air 03/19/17 04:45 97 Room Air 03/19/17 03:40 36.6 66 14 122/76 (91) 97 Room Air GEN: A+Ox3. NAD. HEENT exam is normocephalic and atraumatic. Nares without discharge. Throat was clear. Neck was supple without thyromegaly, lymphadenopathy. There are no carotid bruits.Chest: Mild tenderness to left side chest wall with palpation. Lungs: Scattered rhonchi. No rales. Cardiovascular exam is regular with normal S1, S-2. There is no murmur, gallop , or rub. Abdomen was soft, nontender. There is no palpable hepatosplenomegaly. There is no hepatojugular reflux. There are no abdominal bruits. Femoral and distal pulses are 2+ over 4. There are no femoral bruits. Neurologically, patient is answering questions appropriately. DATA: Repeat EKG this AM: Sinus bradycardia Otherwise normal ECG When compared with ECG of 18-MAR-2017 19:50, (unconfirmed) No significant change was found EKG on admission: Normal sinus rhythm Possible Left atrial enlargement Borderline ECG No previous ECGs available Telemetry reviewed - NSR Chest CT: Negative for PE/acute process Labs: Last 24 Hours Test 03/18/17 18:45 03/18/17 22:00 03/19/17 00:27 03/19/17 06:27 White Blood Count 8.57 K/uL Red Blood Count 4.52 M/uL Hemoglobin 14.0 g/dL Hematocrit 41.5 % Mean Corpuscular Volume 91.8 fL Mean Corpuscular Hemoglobin 31.0 pg Mean Corpuscular Hemoglobin Concent 33.7 g/dl Platelet Count 295 K/uL Mean Platelet Volume 10.2 fL Neutrophils (%) (Auto) 59.8 % Lymphocytes (%) (Auto) 28.9 % Monocytes (%) (Auto) 8.4 % Eosinophils (%) (Auto) 2.2 % Basophils (%) (Auto) 0.5 % Neutrophils # (Auto) 5.12 K/uL Lymphocytes # (Auto) 2.48 K/uL Monocytes # (Auto) 0.72 K/uL Eosinophils # (Auto) 0.19 K/uL Basophils # (Auto) 0.04 K/uL RDW Standard Deviation 47.2 fL RDW Coefficient of Variation 14.1 % Immature Granulocyte % (Auto) 0.2 % Immature Granulocyte # (Auto) 0.02 K/uL Prothrombin Time 10.0 SECONDS Prothromb Time International Ratio 1.0 Sodium Level 142 mmol/L Potassium Level 3.5 mmol/L Chloride Level 105 mmol/L Carbon Dioxide Level 28 mmol/L Anion Gap 9.0 mmol/L Blood Urea Nitrogen 7 mg/dl Creatinine 0.79 mg/dl Est Creatinine Clear Calc Drug Dose 65.8 ml/min Estimated GFR () 99.8 Estimated GFR (Non- 86.1 BUN/Creatinine Ratio 9.3 Random Glucose 119 mg/dl Calcium Level 9.1 mg/dl Total Bilirubin 0.3 mg/dl Direct Bilirubin < 0.1 mg/dl Aspartate Amino Transf (AST/SGOT) 14 U/L Alanine Aminotransferase (ALT/SGPT) 20 U/L Alkaline Phosphatase 59 U/L Total Creatine Kinase 41 U/L Creatine Kinase MB < 0.5 ng/ml Creatine Kinase MB Ratio Troponin I < 0.015 ng/ml < 0.015 ng/ml < 0.015 ng/ml Total Protein 7.5 gm/dl Albumin 4.0 gm/dl Lipase 213 U/L Influenza Type A (RT-PCR) Neg for Influ A Influenza Type B (RT-PCR) Neg for Influ B IMPRESSION: 51 year old female 1. Atypical chest pain, suggestive of GI etiology vs musculoskeletal etiology. Nonischemic EKG, negative cardiac enzymes x3, no recurrent symptoms. 2. History of mild early atherosclerotic disease, 50-60% left circ per cath in . 3. Hyperlipidemia on statin 4. Chronic tobacco abuse, COPD 5. Past syncopal events, which appear to be vasovagally mediated - no arrhythmias on cardiac monitor technician. Wearing outpatient cardiac monitor technician. To return tomorrow. PLAN: Patient remains symptom free overnight. At this time she has normal cardiac enzymes x3 with no acute EKG changes. Symptoms suggest GI etiology. Increase Protonix to 40 mg. Consider GI f/u given history of Kimble's esophagus if symptoms persist. Continue ASA, atorvastatin BP well controlled Smoking cessation strongly encouraged 2-4 week cardiology f/u recommended. At that time, if she has any recurrent symptoms, can discuss repeat stress testing as outpatient. Patient is anxious for discharge. She is in agreement with this plan. Case discussed with Dr. Ruiz. (Mali Flores PA-C) Cardiology Attending Physician: Patient seen and examined at the bedside. Denies recurrent chest discomfort overnight. Reports sharp and stabbing left-sided discomfort after eating lasagna and potato chips last evening. She feels symptoms likely related to history of Kimble's esophagitis. No associated palpitations, shortness of breath, lightheadedness, dizziness, syncope or near-syncope. No dysrhythmias on telemetry. Cardiac enzymes are undetectable. Currently pain-free and requesting discharge. PE: VSS. Gen: NAD, AAO x3. Heart: Regular, normal S1, S2. No murmur. Lungs: Clear bilateral, no rales, rhonchi, wheeze. Extremity: No clubbing, cyanosis, or edema. A/P: Agree with above PAC history, physical exam, assessment and plan. Discussed possible repeat stress testing as an outpatient. Patient will follow- up with Dr. Melvin. No medication changes at this time. She is agreeable to the current plan and follow-up recommendations. Maykel Ruiz DO, FACC (Cale Ruiz DO)
--- NOTE | 2017-03-19 10:46 | Progress Note ---
Internal Med Progress Note Date of Service: Mar 19, 2017. Provider Documentation: SUBJECTIVE: Patient denies chest discomfort symptoms similar to preadmission symptoms since arriving from emergency room. Denies shortness of breath. 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, no motor/sensory deficits, alert, normal mood/affect, oriented x 3 ASSESSMENT & PLAN: 51-year-old female with PMH significant for hyperlipidemia, family history of premature coronary artery disease, chronic tobacco abuse with underlying COPD, previously evaluated at [facility] for ongoing chest pain with nuclear stress testing which was negative for inducible ischemia, cardiac cath on 2016 which demonstrated mild narrowing of the left circumflex 50-60% with no other obstructive disease noted and normal LV function, currently wearing a 2 week Zio monitor, who was placed under observation for workup of chest pain CTA scan: No evidence for pulmonary embolus. The lungs are clear Evaluated by Cardiology service when under observation by Dr. Ruiz in [facility] Discharge diagnosis of Atypical Chest pain (GI etiology vs musculoskeletal etiology. Nonischemic EKG, negative cardiac enzymes x3, no recurrent symptoms) Patient's symptoms suggest GI etiology and asked to take protonix 40 mg daily and to consider outpatient GI evaluation given history of Kimble's esophagus if symptoms persist vs outpatient cardiac stress testing Continue ASA, atorvastatin Smoking cessation strongly encouraged DISPOSITION Discharge to Home with Follow up to 03/21/2017 1:00 PM Vijay Jolley MD General Internal Medicine [facility] 04/03/17 1: [address] Melvin, Cardiology [address] Remove Zio monitor as instructed outpatient Vital Signs: Date Time Temp Pulse Resp B/P (MAP) Pulse Ox O2 Delivery O2 Flow Rate FiO2 03/19/17 08:00 Room Air 03/19/17 07:42 67 18 97 Room Air 03/19/17 07:39 36.5 69 18 107/69 (82) 98 Room Air 03/19/17 04:45 97 Room Air 03/19/17 03:40 36.6 66 14 122/76 (91) 97 Room Air 03/18/17 23:53 36.6 71 18 126/76 (93) 98 Room Air 03/18/17 23:30 98 Room Air 03/18/17 23:30 98 Room Air 03/18/17 22:18 36.8 81 18 129/79 98 Room Air 03/18/17 21:24 36.8 81 18 129/79 (96) 98 Room Air 03/18/17 21:01 36.8 79 18 128/86 95 03/18/17 19:44 95 18 126/73 94 Room Air 03/18/17 19:11 90 18 123/88 99 03/18/17 19:11 85 03/18/17 19:10 95 Room Air 03/18/17 19:10 Room Air 03/18/17 19:02 86 18 130/81 95 Room Air 03/18/17 18:36 97 Room Air 03/18/17 18:32 36.8 112 20 161/90 97 Room Air Lab Results: Results Past 24 Hours Test 03/18/17 18:45 03/18/17 22:00 03/19/17 00:27 03/19/17 06:27 Range/Units White Blood Count 8.57 4.8-10.8 K/uL Red Blood Count 4.52 4.2-5.4 M/uL Hemoglobin 14.0 12.0-16.0 g/dL Hematocrit 41.5 37-47 % Mean Corpuscular Volume 91.8 80-100 fL Mean Corpuscular Hemoglobin 31.0 25-34 pg Mean Corpuscular Hemoglobin Concent 33.7 32-36 g/dl Platelet Count 295 130-400 K/uL Mean Platelet Volume 10.2 7.4-10.4 fL Neutrophils (%) (Auto) 59.8 % Lymphocytes (%) (Auto) 28.9 % Monocytes (%) (Auto) 8.4 % Eosinophils (%) (Auto) 2.2 % Basophils (%) (Auto) 0.5 % Neutrophils # (Auto) 5.12 1.4-6.5 K/uL Lymphocytes # (Auto) 2.48 1.2-3.4 K/uL Monocytes # (Auto) 0.72 0.11-0.59 K/uL Eosinophils # (Auto) 0.19 0-0.5 K/uL Basophils # (Auto) 0.04 0-0.2 K/uL RDW Standard Deviation 47.2 36.4-46.3 fL RDW Coefficient of Variation 14.1 11.5-14.5 % Immature Granulocyte % (Auto) 0.2 % Immature Granulocyte # (Auto) 0.02 0.00-0.02 K/uL Prothrombin Time 10.0 9.0-12.0 SECONDS Prothromb Time International Ratio 1.0 0.9-1.1 Sodium Level 142 136-145 mmol/L Potassium Level 3.5 3.5-5.1 mmol/L Chloride Level 105 98-107 mmol/L Carbon Dioxide Level 28 21-32 mmol/L Anion Gap 9.0 3-11 mmol/L Blood Urea Nitrogen 7 7-18 mg/dl Creatinine 0.79 0.60-1.20 mg/dl Est Creatinine Clear Calc Drug Dose 65.8 ml/min Estimated GFR () 99.8 Estimated GFR (Non- 86.1 BUN/Creatinine Ratio 9.3 10-20 Random Glucose 119 70-99 mg/dl Calcium Level 9.1 8.5-10.1 mg/dl Total Bilirubin 0.3 0.2-1 mg/dl Direct Bilirubin < 0.1 0-0.2 mg/dl Aspartate Amino Transf (AST/SGOT) 14 15-37 U/L Alanine Aminotransferase (ALT/SGPT) 20 12-78 U/L Alkaline Phosphatase 59 45-117 U/L Total Creatine Kinase 41 26-192 U/L Creatine Kinase MB < 0.5 0.5-3.6 ng/ml Creatine Kinase MB Ratio 0-3.0 Troponin I < 0.015 < 0.015 < 0.015 0-0.045 ng/ml Total Protein 7.5 6.4-8.2 gm/dl Albumin 4.0 3.4-5.0 gm/dl Lipase 213 73-393 U/L Influenza Type A (RT-PCR) Neg for Influ A NEG Influenza Type B (RT-PCR) Neg for Influ B NEG Microbiology Results 03/19/17 Gram Stain, Received Pending 03/19/17 Sputum Culture, Received Pending
--- NOTE | 2017-03-19 10:58 | Discharge Instructions ---
Discharge Instructions Date of Service Mar 19, 2017. Admission Reason for Admission: Chest Pain Discharge Discharge Diagnosis / Problem: Atypical Chest Pain Discharge Goals Goal(s): Decrease discomfort, Improve function Activity Recommendations Activity Limitations: per Instructions/Follow-up section Shower/Bathe: no limitations . Instructions / Follow-Up Instructions / Follow-Up 51-year-old female with PMH significant for hyperlipidemia, family history of premature coronary artery disease, chronic tobacco abuse with underlying COPD, previously evaluated at [facility] for ongoing chest pain with nuclear stress testing which was negative for inducible ischemia, cardiac cath on 2016 which demonstrated mild narrowing of the left circumflex 50-60% with no other obstructive disease noted and normal LV function, currently wearing a 2 week Zio monitor, who was placed under observation for workup of chest pain CTA scan: No evidence for pulmonary embolus. The lungs are clear Evaluated by Cardiology service when under observation by Dr. Ruiz in [facility] Discharge diagnosis of Atypical Chest pain (GI etiology vs musculoskeletal etiology. Nonischemic EKG, negative cardiac enzymes x3, no recurrent symptoms) Patient's symptoms suggest GI etiology and asked to take protonix 40 mg daily and to consider outpatient GI evaluation given history of Kimble's esophagus if symptoms persist vs outpatient cardiac stress testing Continue ASA, atorvastatin Smoking cessation strongly encouraged DISPOSITION Discharge to Home with Follow up to 03/21/2017 1:00 PM Vjiay Jolley MD General Internal Medicine [facility] 04/03/17 1: [address] Melvin, Cardiology [address] [place] Remove Zio monitor as instructed outpatient Current Hospital Diet Patient's current hospital diet: AHA Diet (Heart Healthy) Discharge Diet Recommended Diet: AHA Diet (Heart Healthy) Pending Studies Studies pending at discharge: no Laboratory Results 03/18/17 18:45 Red Blood Count 4.52, Mean Corpuscular Volume 91.8, Mean Corpuscular Hemoglobin 31.0, Mean Corpuscular Hemoglobin Concent 33.7, Mean Platelet Volume 10.2, Neutrophils (%) (Auto) 59.8, Lymphocytes (%) (Auto) 28.9, Monocytes (%) (Auto) 8.4, Eosinophils (%) (Auto) 2.2, Basophils (%) (Auto) 0.5, Neutrophils # (Auto) 5.12, Lymphocytes # (Auto) 2.48, Monocytes # (Auto) 0.72, Eosinophils # (Auto) 0.19, Basophils # (Auto) 0.04 03/18/17 18:45 Test 03/18/17 18:45 03/18/17 22:00 03/19/17 06:27 White Blood Count 8.57 K/uL (4.8-10.8) Red Blood Count 4.52 M/uL (4.2-5.4) Hemoglobin 14.0 g/dL (12.0-16.0) Hematocrit 41.5 % (37-47) Mean Corpuscular Volume 91.8 fL (80-100) Mean Corpuscular Hemoglobin 31.0 pg (25-34) Mean Corpuscular Hemoglobin Concent 33.7 g/dl (32-36) Platelet Count 295 K/uL (130-400) Mean Platelet Volume 10.2 fL (7.4-10.4) Neutrophils (%) (Auto) 59.8 % Lymphocytes (%) (Auto) 28.9 % Monocytes (%) (Auto) 8.4 % Eosinophils (%) (Auto) 2.2 % Basophils (%) (Auto) 0.5 % Neutrophils # (Auto) 5.12 K/uL (1.4-6.5) Lymphocytes # (Auto) 2.48 K/uL (1.2-3.4) Monocytes # (Auto) 0.72 K/uL (0.11-0.59) Eosinophils # (Auto) 0.19 K/uL (0-0.5) Basophils # (Auto) 0.04 K/uL (0-0.2) RDW Standard Deviation 47.2 fL (36.4-46.3) RDW Coefficient of Variation 14.1 % (11.5-14.5) Immature Granulocyte % (Auto) 0.2 % Immature Granulocyte # (Auto) 0.02 K/uL (0.00-0.02) Prothrombin Time 10.0 SECONDS (9.0-12.0) Prothromb Time International Ratio 1.0 (0.9-1.1) Anion Gap 9.0 mmol/L (3-11) Est Creatinine Clear Calc Drug Dose 65.8 ml/min Estimated GFR () 99.8 Estimated GFR (Non- 86.1 BUN/Creatinine Ratio 9.3 (10-20) Calcium Level 9.1 mg/dl (8.5-10.1) Total Bilirubin 0.3 mg/dl (0.2-1) Direct Bilirubin < 0.1 mg/dl (0-0.2) Aspartate Amino Transf (AST/SGOT) 14 U/L (15-37) Alanine Aminotransferase (ALT/SGPT) 20 U/L (12-78) Alkaline Phosphatase 59 U/L (45-117) Total Creatine Kinase 41 U/L (26-192) Creatine Kinase MB < 0.5 ng/ml (0.5-3.6) Creatine Kinase MB Ratio (0-3.0) Total Protein 7.5 gm/dl (6.4-8.2) Albumin 4.0 gm/dl (3.4-5.0) Lipase 213 U/L (73-393) Influenza Type A (RT-PCR) Neg for Influ A (NEG) Influenza Type B (RT-PCR) Neg for Influ B (NEG) Troponin I < 0.015 ng/ml (0-0.045) Date/Time Source Procedure Growth Status 03/19/17 10:30 Sputum Expectorated Sputum Gram Stain Pending Received 03/19/17 10:30 Sputum Expectorated Sputum Sputum Culture Pending Received Medical Emergencies . Who to Call and When: Medical Emergencies: If at any time you feel your situation is an emergency, please call 911 immediately. . Non-Emergent Contact Non-Emergency issues call your: Primary Care Provider . . "Provider Documentation" section prepared by Omid Putnam. . VTE Core Measure Inpt VTE Proph given/why not?: Enoxaparin (Lovenox)SQ
--- NOTE | 2017-03-19 11:01 | Discharge Summary ---
Discharge Summary Date of Service Mar 19, 2017. Discharge Summary Admission Date: Mar 18, 2017 at 20:33 Discharge Date: Mar 19, 2017 Discharge Disposition: Home Principal Diagnosis: atypical chest pain, wing's esophagus, GERD, smoker Medication Reconciliation Continued Medications: Aspirin (Aspirin Ec) 81 Mg Tab 81 MG PO DAILY Atorvastatin (Lipitor) 20 Mg Tab 20 MG PO DAILY, TAB Linaclotide (Linzess) 145 Mcg Cap 1 CAP PO DAILY Nitroglycerin (Nitrostat) 0.4 Mg Tab 0.4 MG UT PRN, BTL Pantoprazole (Protonix) 40 Mg Tab 40 MG PO DAILY Probiotic Product (Probiotic) 1 Cap Cap 1 CAP PO DAILY Admission Information HPI (per Admitting provider): 51 yo F with h/o nonobstructive CAD presents to the ER with chest pain that began at rest after eating flavored chips and persisted. In the ER, her pain was relieved with nitro and had persisted for a couple of hours. She reports the pain in her L anterior chest without radiation and was accompanied by sweaty underarms. She denies any SOB or pain with inhalation but did have a CTA which was negative for PE. She reports taking her own nitro at home but states she thinks it didn't work because it is . ASA was given. She was recently seen by Dr. Melvin for persistent syncopal episodes and is currently on a Ziopatch. She denies any recent syncope. She also states that she is a smoker and has "debris" in her lung for which she is seeing a trading floor operator. She reports no SOB but has had a productive cough of brownish sputum and has some wheezing on exam. She is not in respiratory distress and is not requiring oxygen supplementation. She is currently chest pain-free after the nitro in the ER. Risk factors include HLP, active smoking and strong family history of early CAD including her mom with CT @63 yo, brother with CT @ 40 yo and sister with CT @ 50 yo. Physical Exam (per Admitting): General Appearance: WD/WN, no apparent distress Head: normocephalic, atraumatic Eyes: normal inspection, PERRL ENT: hearing grossly normal, pharynx normal Neck: supple, no adenopathy, trachea midline Respiratory/Chest: chest non-tender, normal breath sounds, no respiratory distress, no accessory muscle use, + wheezing Cardiovascular: regular rate, rhythm, no edema, no gallop, no JVD, no murmur , normal peripheral pulses Abdomen/GI: normal bowel sounds, non tender, soft, no organomegaly Back: normal inspection Extremities/Musculoskelatal: normal inspection Neurologic/Psych: express manager II-XII nml as tested, no motor/sensory deficits, alert , normal mood/affect, oriented x 3 Skin: normal color, warm/dry, + pertinent finding (tattoes and mild eczematous patches.) Hospital Course 51-year-old female with PMH significant for hyperlipidemia, family history of premature coronary artery disease, chronic tobacco abuse with underlying COPD, previously evaluated at [facility] for ongoing chest pain with nuclear stress testing which was negative for inducible ischemia, cardiac cath on 2016 which demonstrated mild narrowing of the left circumflex 50-60% with no other obstructive disease noted and normal LV function, currently wearing a 2 week Zio monitor, who was placed under observation for workup of chest pain CTA scan: No evidence for pulmonary embolus. The lungs are clear Evaluated by Cardiology service when under observation by Dr. Ruiz in [facility] [address] Discharge diagnosis of Atypical Chest pain (GI etiology vs musculoskeletal etiology. Nonischemic EKG, negative cardiac enzymes x3, no recurrent symptoms) Patient's symptoms suggest GI etiology and asked to take protonix 40 mg daily and to consider outpatient GI evaluation given history of Kimble's esophagus if symptoms persist vs outpatient cardiac stress testing Continue ASA, atorvastatin Smoking cessation strongly encouraged DISPOSITION Discharge to Home with Follow up to 03/21/2017 1:00 PM Vijay Jolley MD General Internal Medicine [facility] 04/03/17 1: [address] Melvin, Cardiology [address] [place] Remove Zio monitor as instructed outpatient Total time spent on discharge = This includes examination of the patient, discharge planning, medication reconciliation, and communication with other providers. Discharge Instructions see above
[2017-03-19 11:05] VITALS: BP 107/69; PULSE 67; TEMP 36.5; O2SAT 97
== END 2017-03-19 11:25 | disposition home or self-care (01) ==
LOC: C.EDB 18:32 → C.MED 20:33 → ENRESERV 20:49
PROVIDERS: ADMIT Hospitalist; ATTEND Hospitalist
DX: R07.89 Other chest pain (principal); K22.70 Barrett's esophagus without dysplasia; I25.10 Atherosclerotic heart disease of native coronary artery without angina pectoris; K21.9 Gastro-esophageal reflux disease without esophagitis; J44.9 Chronic obstructive pulmonary disease, unspecified; E78.5 Hyperlipidemia, unspecified; I51.9 Heart disease, unspecified; F17.200 Nicotine dependence, unspecified, uncomplicated; Z79.82 Long term (current) use of aspirin; Z79.899 Other long term (current) drug therapy; Z88.8 Allergy status to other drugs, medicaments and biological substances; Z82.49 Family history of ischemic heart disease and other diseases of the circulatory system